=== PATIENT | male | born 1995 | race Asian ===

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

== ENCOUNTER 2017-09-23 13:38 | Emergency (ER) | payer OTHER ==
[~2017-09-23] VITALS: Ht 167.6 cm; Wt 58.2 kg
[~2017-09-23 13:38] MED LIST: AMOXICILLIN 8751 TAB PO; ZOFRAN ODT4 MG PO
[2017-09-23 13:46] VITALS: BP 101/54; TEMP 98.5
[2017-09-23] MEDS ORDERED: MAGIC MOUTH PO (14:03)
[2017-09-23] MEDS ORDERED: TESSALON P100 MG/CAP PO (14:03)
[2017-09-23 14:22] LABS: COLLECTION METHOD CLEAN CATCH
[2017-09-23 14:26] LABS: HEMATOCRIT 46.7 % (36.0-47.0); HEMOGLOBIN 16.3 g/dl (12.5-16.1); MEAN CELL VOLUME 88 fl (80.0-95.0); MEAN CORPUSCULAR HEMOGLOBIN 31 pg (26.0-32.0); MEAN CORPUSCULAR HGB CONC 35 g/dl (33.0-37.0); MEAN PLATELET VOLUME 11.3 fl (7.4-10.4); PLATELET COUNT 183 K/mm3 (130-400); RED BLOOD COUNT 5.29 M/mm3 (4.20-5.60); REDCELL DISTRIBUTION WIDTH-CV 12.6 % (11.5-14.5)
[2017-09-23 14:31] LABS: MUCOUS Present /lpf; PH 5 (5-8); SQUAMOUS EPITHELIAL 0-2 /hpf; URINE APPEARANCE Clear; URINE BACTERIA None Seen /hpf; URINE BILIRUBIN Negative (NEGATIVE); URINE BLOOD Negative (NEGATIVE); URINE COLOR Yellow; URINE GLUCOSE Negative (NEGATIVE); URINE KETONE Negative (NEGATIVE); URINE LEUKOCYTE ESTERASE Negative (NEGATIVE); URINE NITRATE Negative (NEGATIVE); URINE PROTEIN(semi-quant) Negative (NEGATIVE); URINE RBC 0-2 /hpf; URINE UROBILINOGEN Negative (NEGATIVE); URINE WBC 0-2 /hpf
[2017-09-23 14:39] LABS: ALANINE AMINOTRANSFERASE 49 U/L (21-72); ALBUMIN 4.5 gm/dL (3.5-5.0); ALKALINE PHOSPHATASE 66 U/L (50-136); ANION GAP 12 mmol/L (7-16); AST,SGOT 22 U/L (15-37); BILIRUBIN,TOTAL 0.6 mg/dL (0.0-1.0); BLOOD UREA NITROGEN 12 mg/dL (9-20); CALCIUM 9.7 mg/dL (8.4-10.2); CARBON DIOXIDE 26 mmol/L (22-30); CHLORIDE 101 mmol/L (98-107); CREATININE, serum 0.66 mg/dL (0.66-1.25); GLUCOSE 96 mg/dL (74-106); LIPASE 42 U/L (23-300); POTASSIUM 4.1 mmol/L (3.4-5.0); SODIUM 139 mmol/L (137-145); TOTAL PROTEIN 7.4 gm/dL (6.4-8.2)
[2017-09-23 14:41] LABS: C-REACTIVE PROTEIN < 0.5 mg/dL (0.0-0.9)
[2017-09-23] MEDS ORDERED: ZOFRAN ODT4 MG PO (15:11)
[2017-09-23 15:21] VITALS: PULSE 82
[2017-09-23 15:23] LABS: BAND 1 % (0-10); EOSINOPHIL 2 % (0-4); LYMPHOCYTE 22 % (20.0-51.0); NEUTROPHILS 73 % (42.0-75.2)
[2017-09-23 15:24] LABS: ANISOCYTOSIS 1+; PLATELET ESTIMATE NORMAL (NORMAL)
== END 2017-09-23 15:20 | disposition home or self-care (01) ==
LOC: COL.ER 13:38
PROVIDERS: Nurse Practitioner
DX: B34.9 Viral infection, unspecified (principal); F17.210 Nicotine dependence, cigarettes, uncomplicated; E86.0 Dehydration
CPT/HCPCS: J1885; J2405; J7030

== ENCOUNTER 2019-03-12 02:39 | Emergency (ER) | payer OTHER ==
[~2019-03-12] VITALS: Ht 162.6 cm; Wt 62.0 kg
[~2019-03-12 02:39] MED LIST changes: +MAGIC MOUTH PO; +TESSALON P100 MG/CAP PO
[2019-03-12 02:46] VITALS: TEMP 98.1
[2019-03-12 04:30] VITALS: BP 128/66; PULSE 76
== END 2019-03-12 04:30 | disposition home or self-care (01) ==
LOC: COL.ER 02:39
DX: S90.32XA Contusion of left foot, initial encounter (principal); S93.402A Sprain of unspecified ligament of left ankle, initial encounter; F17.210 Nicotine dependence, cigarettes, uncomplicated; X50.1XXA Overexertion from prolonged static or awkward postures, initial encounter; Y93.67 Activity, basketball; Y92.310 Basketball court as the place of occurrence of the external cause